=== PATIENT | female | born 1955 | race American Indian/Alaskan Native ===

== ENCOUNTER 2018-01-06 10:22 | Inpatient (IN) | payer MEDICARE, OTHER ==
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
[2018-01-06] MEDS ORDERED: Aspirin 325 mg EC Tablets PO STA (11:25)
--- NOTE | 2018-01-06 11:57 | RAD ---
HISTORY: chest pain COMPARISON: Chest radiograph dated 01/07/2016. TECHNIQUE: Chest PA and lateral FINDINGS: LUNGS: No active pulmonary disease. PLEURA: No significant pleural effusion identified. No pneumothorax apparent. CARDIOVASCULAR: Atherosclerotic aortic calcifications. Cardiomediastinal silhouette stably enlarged. OSSEOUS STRUCTURES: Unchanged. VISUALIZED UPPER ABDOMEN: Normal. OTHER FINDINGS: None. IMPRESSION: No active disease.
[2018-01-06 12:04] LABS: BASO % 0.3 % (0.0-2.0); EOS % 0.5 % (0.0-4.0); HEMOGLOBIN 12.8 g/dL (11.0-16.0); LYMPH # 1.5 K/uL (1.0-4.3); LYMPH % 24.6 % (20.0-40.0); MEAN CELL VOLUME 87.1 fL (81.0-99.0); MEAN CORPUSCULAR HEMOGLOBIN 28.6 pg (27.0-31.0); MEAN CORPUSCULAR HGB CONC 32.9 g/dL (33.0-37.0); MEAN PLATELET VOLUME 8.8 fL (7.2-11.7); MONO # 0.5 K/uL (0.0-0.8); MONO % 7.6 % (0.0-10.0); NEUT # 4.2 K/uL (1.8-7.0); RBC 4.48 Mil/uL (3.80-5.20); RED CELL DISTRIBUTION WIDTH 15.9 % (11.5-14.5); WHITE BLOOD COUNT 6.2 K/uL (4.8-10.8)
[2018-01-06 12:12] LABS: INR 1.1; PROTHROMBIN TIME 11.9 SECONDS (9.7-12.2)
[2018-01-06 12:47] LABS: ALB/GLOB RATIO 1.1 (1.0-2.1); ALBUMIN 4.2 g/dL (3.5-5.0); GFR AFRICAN-AMERICAN > 60; GFR NON-AFRICAN AMERICAN > 60; LIPASE 24 U/L (23-300)
[2018-01-06 12:49] LABS: ALT/SGPT 18 U/L (9-52); AST/SGOT 34 U/L (14-36); BLOOD UREA NITROGEN 6 mg/dL (7-17)
[2018-01-06 12:50] LABS: BENZODIAZEPINES, UR NEGATIVE (NEGATIVE); OPIATES, UR NEGATIVE (NEGATIVE); PHENCYCLIDINE, UR NEGATIVE (NEGATIVE)
[2018-01-06 12:51] LABS: BARBITURATES, UR NEGATIVE (NEGATIVE)
--- NOTE | 2018-01-06 18:13 | CP.PCM.CON ---
History of Present Illness - History of Present Illness History of Present Illness: 62 yo femqale with hx schizophrenia and HIV is admitted with chest pain cough and congestion possible exac COPD vs early pneumonia will check T cells and viral load await cardio eval may need stress test / cardiac cath Review of Systems - Review of Systems All systems: reviewed and no additional remarkable complaints except - Constitutional Constitutional: As Per HPI - EENT Eyes: absent: As Per HPI, Blind Spots, Blurred Vision, Change in Vision, Decreased Night Vision, Diplopia, Discharge, Dry Eye, Exophthalmos, Floaters, Irritation, Itchy Eyes, Loss of Peripheral Vision, Pain, Photophobia, Requires Corrective Lenses, Sees Flashes, Spots in Vision, Tunnel Vision, Other Visual Disturbances, Loss of Vision, Other Ears: absent: As Per HPI, Decreased Hearing, Ear Discharge, Ear Pain, Tinnitus, Abnormal Hearing, Disequilibrium, Dizziness, Other Nose/Mouth/Throat: absent: As Per HPI, Epistaxis, Nasal Congestion, Nasal Discharge, Nasal Obstruction, Nasal Trauma, Nose Pain, Post Nasal Drip, Sinus Pain, Sinus Pressure, Bleeding Gums, Change in Voice, Dental Pain, Dry Mouth, Dysphagia, Halitosis, Hoarsness, Lip Swelling, Mouth Lesions, Mouth Pain, Odynophagia, Sore Throat, Throat Swelling, Tongue Swelling, Facial Pain, Neck Pain, Neck Mass, Other - Breasts Breasts: absent: As Per HPI, Change in Shape, Mass, Pain, Nipple Discharge, Nipple Inversion, Skin Changes, Swelling, Other - Cardiovascular Cardiovascular: As Per HPI - Respiratory Respiratory: As Per HPI, Cough, Dyspnea. absent: Hemoptysis - Gastrointestinal Gastrointestinal: absent: As Per HPI, Abdominal Pain, Belching, Bloating, Change in Bowel Habits, Change in Stool Character, Coffee Ground Emesis, Constipation, Cramping, Diarrhea, Dyspepsia, Dysphagia, Early Satiety, Excessive Flatus, Fecal Incontinence, Heartburn, Hematemesis, Hematochezia, Loose Stools, Melena, Nausea, Odynophagia, Temesmus, Vomiting, Other - Genitourinary Genitourinary: absent: As Per HPI, Change in Urinary Stream, Difficulty Urinating, Dysuria, Flank Pain, Hematuria, Pyuria, Nocturia, Urinary Incontinence, Urinary Frequency, Urinary Hesitance, Urinary Urgency, Voiding Freq/Small Amts, Freq UTI, Hx Renal/Bladder Calculi, Hx /Renal Surgery, Bladder Distension, Other - Reproductive: Female Reproductive:Female: absent: As Per HPI, Amenorrhea, Amenorrhea/ Control, Currently Menstual, Cycle <21 Days, Cycle >35 Days, Cycle Variable, Menses 1-7 Days, Menses >/= 8 Days, Menses Variable, Cycle > 4 Weeks Between, No Menses for 6 Months, Heavy Menses, Light Menses, Normal Menses, Spotting Between Cycles , S/P Hysterectomy, Menopausal, Post Menopausal, Premenarche, Abnormal Vaginal Bleeding, Dysmenorrhea, Dyspareunia, Genital Lesions, Genital Pruritis, Pelvic Pain, Prolapse Symptoms, Sexual Dysfunction, Vaginal Discharge, Vaginal Dryness , Vaginal Odor, Vaginal Pruritis, Other - Menstruation Menstruation: absent: As Per HPI, Amenorrhea, Amenorrhea/ Control, Currently Menstual, Cycle <21 Days, Cycle >35 Days, Cycle Variable, Menses 1-7 Days, Menses >/= 8 Days, Menses Variable, Cycle > 4 Weeks Between, No Menses for 6 Months, Heavy Menses, Light Menses, Normal Menses, Spotting Between Cycles , S/P Hysterectomy, Menopausal, Post Menopausal, Premenarche, Abnormal Vaginal Bleeding, Dysmenorrhea, Other - Musculoskeletal Musculoskeletal: absent: As Per HPI, Abnormal Gait, Arthralgias, Atrophy, Back Pain, Deformity, Joint Swelling, Limited Range of Motion, Loss of Height, Muscle Cramps, Muscle Weakness, Myalgias, Neck Pain, Numbness, Radiating Pain into Limb, Stiffness, Tingling, Other - Integumentary Integumentary: absent: As Per HPI, Acne, Alopecia, Bleeding Lesions, Change in Hair, Change in Nails, Change in Pigmentation, Changing Lesions, Dry Skin, Erythema, Furuncle, Hirsutism, Lesions, New Lesions, Non-Healing Lesions, Photosensitivity, Pruritus, Rash, Skin Pain, Skin Ulcer, Sores, Striae, Swelling , Unusual Bruising, Wounds, Jaundice, Other - Neurological Neurological: absent: As Per HPI, Abnormal Gait, Abnormal Hearing, Abnormal Movements, Abnormal Speech, Behavioral Changes, Burning Sensations, Confusion, Convulsions, Disequilibrium, Dizziness, Numbness, Focal Weakness, Frequent Falls , Headaches, Lack of Coordination, Loss of Vision, Memory Loss, Paresthesias, Radicular Pain, Restless Legs, Sensory Deficit, Syncope, Tingling, Tremor, Vertigo, Weakness, Other Visual Disturbances, Other - Psychiatric Psychiatric: As Per HPI - Endocrine Endocrine: absent: As Per HPI, Change in Body Appearance, Change in Libido, Cold Intolorance, Deepening of Voice, Excessive Sweating, Fatigue, Flushing, Heat Intolorance, Increase in Ring/Shoe/Hat Size, Palpitations, Polydipsia, Polyphagia, Polyuria, Other - Hematologic/Lymphatic Hematologic: absent: As Per HPI, Easy Bleeding, Easy Bruising, Lymphadenopathy, Other Past Patient History - Infectious Disease Hx of Infectious Diseases: None - Past Medical History & Family History Past Medical History?: Yes - Past Social History Smoking Status: Former Smoker - CARDIAC Hx Hypertension: Yes - PULMONARY Hx Respiratory Disorders: No - NEUROLOGICAL Hx Neurological Disorder: No - HEENT Other/Comment: uses bifocal eyeglasses - RENAL Hx Chronic Kidney Disease: No - ENDOCRINE/METABOLIC Hx Endocrine Disorders: No - HEMATOLOGICAL/ONCOLOGICAL Hx Human Immunodeficiency Virus (HIV): Yes - INTEGUMENTARY Hx Dermatological Problems: No - MUSCULOSKELETAL/RHEUMATOLOGICAL Hx Musculoskeletal Disorders: Yes Hx Falls: Yes - GASTROINTESTINAL Hx Gastrointestinal Disorders: No - GENITOURINARY/GYNECOLOGICAL Hx Genitourinary Disorders: No - PSYCHIATRIC Hx Anxiety: Yes Hx Depression: Yes Hx Substance Use: No - SURGICAL HISTORY Hx Surgeries: No - ANESTHESIA Hx Anesthesia: No Hx Anesthesia Reactions: No Hx Malignant Hyperthermia: No Meds Allergies/Adverse Reactions: Allergies Allergy/AdvReac Type Severity Reaction Status Date / Time Penicillins Allergy Verified 01/06/18 10:33 - Medications Medications: Current Medications Amlodipine Besylate (Norvasc) 5 mg PO DAILY [facility] Heparin Sodium (Porcine) (Heparin) 5,000 units SC Q8 [facility] Lorazepam (Ativan) 1 mg PO Q6 PRN PRN Reason: Anxiety Physical Exam - Constitutional Appears: Well - Head Exam Head Exam: ATRAUMATIC, NORMAL INSPECTION, NORMOCEPHALIC - Eye Exam Eye Exam: EOMI, Normal appearance, PERRL Pupil Exam: NORMAL ACCOMODATION, PERRL - ENT Exam ENT Exam: Mucous Membranes Moist, Normal Exam - Neck Exam Neck exam: Positive for: Normal Inspection - Respiratory Exam Respiratory Exam: Clear to Auscultation Bilateral, NORMAL BREATHING PATTERN - Cardiovascular Exam Cardiovascular Exam: REGULAR RHYTHM - GI/Abdominal Exam GI & Abdominal Exam: Normal Bowel Sounds, Soft. absent: Tenderness - Rectal Exam Rectal Exam: NORMAL INSPECTION - Exam Exam: Circumcision, NORMAL INSPECTION - Extremities Exam Extremities exam: Positive for: normal inspection - Back Exam Back exam: NORMAL INSPECTION - Neurological Exam Neurological exam: Alert, CN II-XII Intact, Normal Gait, Oriented x3, Reflexes Normal - Psychiatric Exam Psychiatric exam: Anxious, Depressed, Flat Affect - Skin Skin Exam: Dry, Intact, Normal Color, Warm Results - Vital Signs Recent Vital Signs: Last Vital Signs Temp 98.6 F 01/06/18 15:30 Pulse 76 01/06/18 15:30 Resp 20 01/06/18 15:30 BP 143/83 01/06/18 15:30 Pulse Ox 93 L 01/06/18 15:30 - Labs Result Diagrams: 01/06/18 12:05 01/06/18 12:29 Labs: Laboratory Results - last 24 hr 01/06/18 01/06/18 01/06/18 12:05 12:12 12:29 WBC 6.2 RBC 4.48 Hgb 12.8 Hct 39.0 MCV 87.1 MCH 28.6 MCHC 32.9 L RDW 15.9 H Plt Count 254 MPV 8.8 Neut % (Auto) 67.0 Lymph % (Auto) 24.6 Shackelford % (Auto) 7.6 Eos % (Auto) 0.5 Baso % (Auto) 0.3 Neut # (Auto) 4.2 Lymph # (Auto) 1.5 [place]ack[place]ord # (Auto) 0.5 Eos # (Auto) 0.0 Baso # (Auto) 0.0 PT 11.9 INR 1.1 APTT 41 H Sodium 143 Potassium 3.8 Chloride 102 Carbon Dioxide 27 Anion Gap 18 BUN 6 L Creatinine 0.9 Est GFR ( Amer) > 60 Est GFR (Non-Af Amer) > 60 Random Glucose 89 Calcium 9.0 Total Bilirubin 1.0 AST 34 ALT 18 Alkaline Phosphatase 76 Troponin I < 0.0120 Total Protein 8.2 Albumin 4.2 Globulin 4.0 H Albumin/Globulin Ratio 1.1 Lipase 24 Urine Opiates Screen Urine Methadone Screen Ur Barbiturates Screen Valproic Acid Ur Phencyclidine Scrn Ur Amphetamines Screen U Benzodiazepines Scrn U Oth Cocaine Metabols U Cannabinoids Screen 01/06/18 01/06/18 01/06/18 12:29 12:29 14:32 WBC RBC Hgb Hct MCV MCH MCHC RDW Plt Count MPV Neut % (Auto) Lymph % (Auto) [place]ack[place]ord % (Auto) Eos % (Auto) Baso % (Auto) Neut # (Auto) Lymph # (Auto) [place]ack[place]ord # (Auto) Eos # (Auto) Baso # (Auto) PT INR APTT Sodium Potassium Chloride Carbon Dioxide Anion Gap BUN Creatinine Est GFR ( Amer) Est GFR (Non-Af Amer) Random Glucose Calcium Total Bilirubin AST ALT Alkaline Phosphatase Troponin I < 0.0120 Total Protein Albumin Globulin Albumin/Globulin Ratio Lipase Urine Opiates Screen Negative Urine Methadone Screen Negative Ur Barbiturates Screen Negative Valproic Acid < 10.0 L Ur Phencyclidine Scrn Negative Ur Amphetamines Screen Negative U Benzodiazepines Scrn Negative U Oth Cocaine Metabols Negative U Cannabinoids Screen Negative Assessment & Plan (1) Chest pain Status: Acute (2) FRANKS (dyspnea on exertion) Status: Acute (3) HTN (hypertension) Status: Acute (4) Palpitations Status: Acute (5) SOB (shortness of breath) Status: Acute - Assessment and Plan (Free Text) Assessment: r/o pulm htn hx HIV schizophrenia chest pain Dr Tarsha stevens
[2018-01-06] MEDS ORDERED: Azithromycin 500mg/250ML NS 500 MG/250 ML BAG IVPB SCH (18:15)
[2018-01-06 20:16] LABS: CK-MB < 0.22 ng/mL (0.0-3.38)
[2018-01-06] MEDS: Azithromycin 500mg/250ML NS 500 MG/250 ML BAG IVPB SCH (21:14)
[2018-01-07 05:17] LABS: CK-MB < 0.22 ng/mL (0.0-3.38)
[2018-01-07] MEDS ORDERED: Atazanavir 300 mg Cap PO SCH (10:00)
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
[2018-01-07] MEDS: Azithromycin 500mg/250ML NS 500 MG/250 ML BAG IVPB SCH (18:08)
--- NOTE | 2018-01-07 18:48 | CP.PCM.PN ---
Subjective - Date & Time of Evaluation Date of Evaluation: 01/07/18 Time of Evaluation: 09:00 - Subjective Subjective: seen by psych T cells pending Troponins so far negative rx to cont Objective - Vital Signs/Intake and Output Vital Signs (last 24 hours): Temp Pulse Resp BP Pulse Ox 98.2 F 75 18 120/76 97 01/07/18 15:17 01/07/18 16:00 01/07/18 15:17 01/07/18 15:17 01/07/18 15:17 Intake and Output: 01/07/18 01/07/18 06:59 18:59 Intake Total 240 Balance 240 - Medications Medications: Current Medications Amlodipine Besylate (Norvasc) 5 mg PO DAILY [facility] Last Admin: 01/07/18 10:29 Dose: 5 mg Atazanavir (Reyataz) 400 mg PO DAILY [facility] PRN Reason: Protocol Clonazepam (Klonopin) 0.5 mg PO BID [facility] Last Admin: 01/07/18 18:07 Dose: 0.5 mg Heparin Sodium (Porcine) (Heparin) 5,000 units SC Q8 [facility] Last Admin: 01/07/18 13:15 Dose: Not Given Azithromycin (Zithromax 500mg In Ns Addvantage) 500 mg in 250 mls @ 167 mls/hr IVPB Q24H [facility] PRN Reason: Protocol Last Admin: 01/07/18 18:08 Dose: 167 mls/hr Lamivudine/Zidovudine (Combivir 150 Mg-300 Mg) 1 tab PO BID [facility] PRN Reason: Protocol Last Admin: 01/07/18 18:07 Dose: 1 tab Lorazepam (Ativan) 1 mg PO Q6 PRN PRN Reason: Anxiety Pneumococcal Polyvalent Vaccine (Pneumovax 23 Vaccine) 0.5 ml IM .ONCE ONE Stop: 01/09/18 12:01 - Labs Labs: 01/06/18 12:05 01/06/18 12:29 PT 11.9 SECONDS (9.7-12.2) 01/06/18 12:12 INR 1.1 01/06/18 12:12 APTT 41 SECONDS (21-34) H 01/06/18 12:12 - Constitutional Appears: Non-toxic, Chronically Ill - Head Exam Head Exam: NORMOCEPHALIC - Eye Exam Eye Exam: PERRL - ENT Exam ENT Exam: Mucous Membranes Dry - Neck Exam Neck Exam: absent: Lymphadenopathy - Respiratory Exam Respiratory Exam: Decreased Breath Sounds - Cardiovascular Exam Cardiovascular Exam: REGULAR RHYTHM - GI/Abdominal Exam GI & Abdominal Exam: Distended - Rectal Exam Rectal Exam: Deferred - Exam Exam: NORMAL INSPECTION - Extremities Exam Extremities Exam: absent: Pedal Edema - Back Exam Back Exam: absent: CVA tenderness (L), CVA tenderness (R) - Neurological Exam Neurological Exam: Alert, Awake, Oriented x3 - Psychiatric Exam Psychiatric exam: Anxious - Skin Skin Exam: Dry Assessment and Plan (1) Chest pain Status: Acute (2) FRANKS (dyspnea on exertion) Status: Acute (3) HTN (hypertension) Status: Acute (4) Palpitations Status: Acute (5) SOB (shortness of breath) Status: Acute - Assessment and Plan (Free Text) Assessment: will renew meds await cardio eval
--- NOTE | 2018-01-07 18:57 | CP.PCM.PN ---
Subjective - Date & Time of Evaluation Date of Evaluation: 01/07/18 Time of Evaluation: 18:54 - Subjective Subjective: S: c/o chest iscomfort, on and off. N SOB. No fever Objective - Vital Signs/Intake and Output Vital Signs (last 24 hours): Temp Pulse Resp BP Pulse Ox 98.2 F 75 18 120/76 97 01/07/18 15:17 01/07/18 16:00 01/07/18 15:17 01/07/18 15:17 01/07/18 15:17 Intake and Output: 01/07/18 01/07/18 06:59 18:59 Intake Total 240 Balance 240 - Medications Medications: Current Medications Amlodipine Besylate (Norvasc) 5 mg PO DAILY [facility] Last Admin: 01/07/18 10:29 Dose: 5 mg Atazanavir (Reyataz) 400 mg PO DAILY [facility] PRN Reason: Protocol Clonazepam (Klonopin) 0.5 mg PO BID [facility] Last Admin: 01/07/18 18:07 Dose: 0.5 mg Heparin Sodium (Porcine) (Heparin) 5,000 units SC Q8 [facility] Last Admin: 01/07/18 13:15 Dose: Not Given Azithromycin (Zithromax 500mg In Ns Addvantage) 500 mg in 250 mls @ 167 mls/hr IVPB Q24H [facility] PRN Reason: Protocol Last Admin: 01/07/18 18:08 Dose: 167 mls/hr Lamivudine/Zidovudine (Combivir 150 Mg-300 Mg) 1 tab PO BID [facility] PRN Reason: Protocol Last Admin: 01/07/18 18:07 Dose: 1 tab Lorazepam (Ativan) 1 mg PO Q6 PRN PRN Reason: Anxiety Pneumococcal Polyvalent Vaccine (Pneumovax 23 Vaccine) 0.5 ml IM .ONCE ONE Stop: 01/09/18 12:01 - Labs Labs: 01/06/18 12:05 01/06/18 12:29 PT 11.9 SECONDS (9.7-12.2) 01/06/18 12:12 INR 1.1 01/06/18 12:12 APTT 41 SECONDS (21-34) H 01/06/18 12:12 - Constitutional Appears: No Acute Distress - Head Exam Head Exam: NORMAL INSPECTION - Eye Exam Eye Exam: Normal appearance - ENT Exam ENT Exam: Normal Exam - Neck Exam Neck Exam: Normal Inspection - Respiratory Exam Respiratory Exam: NORMAL BREATHING PATTERN - Cardiovascular Exam Cardiovascular Exam: REGULAR RHYTHM - GI/Abdominal Exam GI & Abdominal Exam: Soft - Extremities Exam Extremities Exam: Normal Inspection - Neurological Exam Neurological Exam: Awake Assessment and Plan (1) Chest pain Status: Acute (2) HTN (hypertension) Status: Chronic (3) HIV (human immunodeficiency virus infection) Status: Chronic (4) Schizophrenia Status: Chronic - Assessment and Plan (Free Text) Assessment: A/P: Continue medication. Cardiology consult Dr. Willingham
--- NOTE | 2018-01-07 20:01 | CARD ---
APPROVED REPORT EKG Measurement Heart [id number] <Conclusion> Sinus rhythm Possible Left atrial enlargement Nonspecific ST abnormality Abnormal ECG
--- NOTE | 2018-01-08 08:12 | CP.PCM.PN ---
Subjective - Date & Time of Evaluation Date of Evaluation: 01/08/18 Time of Evaluation: 07:54 - Subjective Subjective: Patient do now want to talk. No reliable ROS. Refuse Zithromax and Heparin. Objective - Vital Signs/Intake and Output Vital Signs (last 24 hours): Temp Pulse Resp BP Pulse Ox 98.0 F 72 18 147/91 H 95 01/07/18 23:00 01/08/18 04:05 01/07/18 23:00 01/07/18 23:00 01/07/18 23:00 Intake and Output: 01/08/18 01/08/18 06:59 18:59 Intake Total 120 Balance 120 - Medications Medications: Current Medications Amlodipine Besylate (Norvasc) 5 mg PO DAILY [facility] Last Admin: 01/07/18 10:29 Dose: 5 mg Atazanavir (Reyataz) 400 mg PO DAILY [facility] PRN Reason: Protocol Clonazepam (Klonopin) 0.5 mg PO BID [facility] Last Admin: 01/07/18 18:07 Dose: Not Given Heparin Sodium (Porcine) (Heparin) 5,000 units SC Q8 [facility] Last Admin: 01/08/18 06:25 Dose: Not Given Azithromycin (Zithromax 500mg In Ns Addvantage) 500 mg in 250 mls @ 167 mls/hr IVPB Q24H [facility] PRN Reason: Protocol Last Admin: 01/07/18 18:08 Dose: 167 mls/hr Lamivudine/Zidovudine (Combivir 150 Mg-300 Mg) 1 tab PO BID [facility] PRN Reason: Protocol Last Admin: 01/07/18 18:07 Dose: 1 tab Lorazepam (Ativan) 1 mg PO Q6 PRN PRN Reason: Anxiety Pneumococcal Polyvalent Vaccine (Pneumovax 23 Vaccine) 0.5 ml IM .ONCE ONE Stop: 01/09/18 12:01 - Labs Labs: 01/06/18 12:05 01/06/18 12:29 PT 11.9 SECONDS (9.7-12.2) 01/06/18 12:12 INR 1.1 01/06/18 12:12 APTT 41 SECONDS (21-34) H 01/06/18 12:12 - Constitutional Appears: No Acute Distress - Eye Exam Eye Exam: Normal appearance - ENT Exam ENT Exam: Mucous Membranes Moist - Respiratory Exam Respiratory Exam: Clear to Ausculation Bilateral. absent: Rales, Rhonchi, Wheezes - Cardiovascular Exam Cardiovascular Exam: REGULAR RHYTHM, +S1, +S2. absent: Gallop - GI/Abdominal Exam GI & Abdominal Exam: Soft. absent: Tenderness - Extremities Exam Extremities Exam: Full ROM, Normal Capillary Refill. absent: Calf Tenderness, Joint Swelling, Pedal Edema Assessment and Plan - Assessment and Plan (Free Text) Assessment: Chest pain; Schizophrenia HIV infection; HTN For stress test Cont supportive care
[2018-01-08 11:41] LABS: % CD4 (T HELPER CELL) 29 Percent (30-61); % CD8 (SUPPRESSOR T CELL) 60 Percent (12-42); ABSOLUTE CD4 CELLS 565 Cells/mcL (490-1740); ABSOLUTE CD8 CELLS 1172 Cells/mcL (180-1170); ABSOLUTE LYMPHOCYTES 1957 Cells/mcL (850-3900); HELPER/SUPPRESSOR RATIO 0.48 Ratio (0.86-5.00)
[2018-01-08] MEDS: Divalproex 500 mg DR Tab PO SCH ×4 (12:58→18:10)
[2018-01-08 13:59] LABS: SQUAMOUS EPITHIAL 4 /hpf (0-5); URINE BACTERIA RARE (<OCC); URINE BILIRUBIN NEGATIVE (NEGATIVE); URINE BLOOD 1+ (NEGATIVE); URINE CLARITY Clear (Clear); URINE COLOR Yellow (YELLOW); URINE GLUCOSE (UA) NORMAL (Normal); URINE LEUKOCYTE ESTERASE NEG Leu/uL (Negative); URINE PROTEIN NEGATIVE (NEGATIVE); URINE UROBILINOGEN NORMAL mg/dL (0.2-1.0)
[2018-01-08] MEDS: SEROQUEL 300 MG PO SCH ×2 (14:12→22:48)
[2018-01-08] MEDS ORDERED: Divalproex 500 mg ER Tab PO SCH (18:00)
[2018-01-08] MEDS: Azithromycin 500mg/250ML NS 500 MG/250 ML BAG IVPB SCH (18:47)
--- NOTE | 2018-01-08 19:12 | CP.PCM.PN ---
Subjective - Date & Time of Evaluation Date of Evaluation: 01/08/18 Time of Evaluation: 07:00 - Subjective Subjective: remains anxious denies cough + chest pain on and off Objective - Vital Signs/Intake and Output Vital Signs (last 24 hours): Temp Pulse Resp BP Pulse Ox 97.9 F 84 20 127/85 97 01/08/18 16:40 01/08/18 16:40 01/08/18 16:40 01/08/18 16:40 01/08/18 16:40 - Medications Medications: Current Medications Amlodipine Besylate (Norvasc) 5 mg PO DAILY [facility] Last Admin: 01/08/18 10:30 Dose: Not Given Atazanavir (Reyataz) 400 mg PO DAILY [facility] PRN Reason: Protocol Last Admin: 01/08/18 10:30 Dose: Not Given Clonazepam (Klonopin) 0.5 mg PO BID [facility] Last Admin: 01/08/18 18:09 Dose: Not Given Divalproex Sodium (Depakote Dr) 500 mg PO BID [facility] Last Admin: 01/08/18 18:10 Dose: Not Given Heparin Sodium (Porcine) (Heparin) 5,000 units SC Q8 [facility] Last Admin: 01/08/18 13:10 Dose: Not Given Home Med (Patient's Own Medication) 1 tab PO BID@1300,2200 [facility] Last Admin: 01/08/18 14:12 Dose: Not Given Azithromycin (Zithromax 500mg In Ns Addvantage) 500 mg in 250 mls @ 167 mls/hr IVPB Q24H [facility] PRN Reason: Protocol Last Admin: 01/08/18 18:47 Dose: Not Given Lamivudine/Zidovudine (Combivir 150 Mg-300 Mg) 1 tab PO BID [facility] PRN Reason: Protocol Last Admin: 01/08/18 18:10 Dose: 1 tab Lorazepam (Ativan) 1 mg PO Q6 PRN PRN Reason: Anxiety Pneumococcal Polyvalent Vaccine (Pneumovax 23 Vaccine) 0.5 ml IM .ONCE ONE Stop: 01/09/18 12:01 - Labs Labs: 01/06/18 12:05 01/06/18 12:29 PT 11.9 SECONDS (9.7-12.2) 01/06/18 12:12 INR 1.1 01/06/18 12:12 APTT 41 SECONDS (21-34) H 01/06/18 12:12 - Constitutional Appears: Non-toxic, Chronically Ill - Head Exam Head Exam: NORMOCEPHALIC - Eye Exam Eye Exam: PERRL - ENT Exam ENT Exam: Mucous Membranes Dry - Neck Exam Neck Exam: absent: Lymphadenopathy - Respiratory Exam Respiratory Exam: Decreased Breath Sounds - Cardiovascular Exam Cardiovascular Exam: REGULAR RHYTHM - GI/Abdominal Exam GI & Abdominal Exam: Distended, Soft. absent: Tenderness - Rectal Exam Rectal Exam: Deferred - Exam Exam: NORMAL INSPECTION - Extremities Exam Extremities Exam: absent: Pedal Edema - Back Exam Back Exam: absent: CVA tenderness (L), CVA tenderness (R) - Neurological Exam Neurological Exam: Alert, Awake, Oriented x3 - Psychiatric Exam Psychiatric exam: Normal Mood - Skin Skin Exam: Dry Assessment and Plan (1) Chest pain Status: Acute (2) FRANKS (dyspnea on exertion) Status: Acute (3) HTN (hypertension) Status: Chronic (4) Palpitations Status: Acute (5) SOB (shortness of breath) Status: Acute
[2018-01-09] MEDS: Divalproex 500 mg DR Tab PO SCH ×2 (09:55→18:10)
[2018-01-09] MEDS ORDERED: Pneumococcal 23-Valent Vaccine IM ONE (12:00)
[2018-01-09] MEDS: SEROQUEL 300 MG PO SCH ×2 (13:42→21:30)
--- NOTE | 2018-01-09 16:00 | CP.PCM.PN ---
Subjective - Date & Time of Evaluation Date of Evaluation: 01/09/18 Time of Evaluation: 15:57 - Subjective Subjective: S: Feels kurtis. Not sign by Cardiology Objective - Vital Signs/Intake and Output Vital Signs (last 24 hours): Temp Pulse Resp BP Pulse Ox 97.8 F 68 18 146/95 H 100 01/09/18 15:27 01/09/18 15:27 01/09/18 15:27 01/09/18 15:27 01/09/18 15:27 - Medications Medications: Current Medications Amlodipine Besylate (Norvasc) 5 mg PO DAILY [facility] Last Admin: 01/09/18 09:56 Dose: Not Given Atazanavir (Reyataz) 400 mg PO DAILY [facility] PRN Reason: Protocol Last Admin: 01/09/18 09:56 Dose: 400 mg Clonazepam (Klonopin) 0.5 mg PO BID [facility] Last Admin: 01/09/18 09:56 Dose: Not Given Divalproex Sodium (Depakote Dr) 500 mg PO BID [facility] Last Admin: 01/09/18 09:55 Dose: Not Given Heparin Sodium (Porcine) (Heparin) 5,000 units SC Q8 [facility] Last Admin: 01/09/18 13:42 Dose: Not Given Home Med (Patient's Own Medication) 1 tab PO BID@1300,2200 [facility] Last Admin: 01/09/18 13:42 Dose: Not Given Azithromycin (Zithromax 500mg In Ns Addvantage) 500 mg in 250 mls @ 167 mls/hr IVPB Q24H [facility] PRN Reason: Protocol Last Admin: 01/08/18 18:47 Dose: Not Given Lamivudine/Zidovudine (Combivir 150 Mg-300 Mg) 1 tab PO BID [facility] PRN Reason: Protocol Last Admin: 01/09/18 09:55 Dose: 1 tab Lorazepam (Ativan) 1 mg PO Q6 PRN PRN Reason: Anxiety - Labs Labs: 01/06/18 12:05 01/06/18 12:29 PT 11.9 SECONDS (9.7-12.2) 01/06/18 12:12 INR 1.1 01/06/18 12:12 APTT 41 SECONDS (21-34) H 01/06/18 12:12 - Constitutional Appears: Non-toxic - Head Exam Head Exam: NORMAL INSPECTION - Eye Exam Eye Exam: Normal appearance - ENT Exam ENT Exam: Normal Exam - Neck Exam Neck Exam: Normal Inspection - Respiratory Exam Respiratory Exam: NORMAL BREATHING PATTERN - Cardiovascular Exam Cardiovascular Exam: REGULAR RHYTHM - Rectal Exam Rectal Exam: Deferred - Exam External exam: NORMAL EXTERNAL EXAM Assessment and Plan (1) Chest pain Status: Acute (2) HTN (hypertension) Status: Chronic (3) HIV (human immunodeficiency virus infection) Status: Chronic (4) Schizophrenia Status: Chronic - Assessment and Plan (Free Text) Assessment: A/P: Continue medications. Not seen by Cardiology. Cardiolody consult Dr. Wu
[2018-01-09] MEDS: Azithromycin 500mg/250ML NS 500 MG/250 ML BAG IVPB SCH (18:12)
[2018-01-10 00:27] VITALS: RESP 20
--- NOTE | 2018-01-10 09:22 | CP.PCM.CON ---
History of Present Illness - History of Present Illness History of Present Illness: Patient seen and evaluated C/O Chest pain Constant for days and reproducible Scattered thought pattern Denies hx of AK, Prior heart disease Review Of Systems Except As Marked, All Systems Reviewed And Found Negative. Constitutional: Positive for: Weight loss (since 06/2017) Cardiovascular: Positive for: Chest Pain. Negative for: Light Headedness Respiratory: Negative for: Shortness of Breath Gastrointestinal: Negative for: Nausea, Vomiting Neurological: Negative for: Dizziness Physical Exam - Physical Exam Appears: Non-toxic, No Acute Distress Skin: Normal Color, Warm, Dry Head: Atraumatic, Normacephalic Eye(s): bilateral: Normal Inspection Oral Mucosa: Moist Neck: Normal ROM, Supple Chest: Symmetrical Cardiovascular: Rhythm Regular Respiratory: Normal Breath Sounds, No Rales, No Rhonchi, No Wheezing Gastrointestinal/Abdominal: Normal Exam, Bowel Sounds, Soft, No Tenderness Extremity: Normal ROM, No Pedal Edema Neurological/Psych: Oriented x3, Normal Speech, Normal Cognition, Normal Motor, Normal Sensation, Other (Calm, cooperative, with scattered thoughts. No acute hallucinations or delusions.) Past Patient History - Infectious Disease Hx of Infectious Diseases: None - Past Medical History & Family History Past Medical History?: Yes - Past Social History Smoking Status: Former Smoker - CARDIAC Hx Hypertension: Yes - PULMONARY Hx Respiratory Disorders: No - NEUROLOGICAL Hx Neurological Disorder: No - HEENT Other/Comment: uses bifocal eyeglasses - RENAL Hx Chronic Kidney Disease: No - ENDOCRINE/METABOLIC Hx Endocrine Disorders: No - HEMATOLOGICAL/ONCOLOGICAL Hx Human Immunodeficiency Virus (HIV): Yes - INTEGUMENTARY Hx Dermatological Problems: No - MUSCULOSKELETAL/RHEUMATOLOGICAL Hx Musculoskeletal Disorders: Yes Hx Falls: Yes - GASTROINTESTINAL Hx Gastrointestinal Disorders: No - GENITOURINARY/GYNECOLOGICAL Hx Genitourinary Disorders: No - PSYCHIATRIC Hx Anxiety: Yes Hx Depression: Yes Hx Substance Use: No - SURGICAL HISTORY Hx Surgeries: No - ANESTHESIA Hx Anesthesia: No Hx Anesthesia Reactions: No Hx Malignant Hyperthermia: No Meds Allergies/Adverse Reactions: Allergies Allergy/AdvReac Type Severity Reaction Status Date / Time Penicillins Allergy Verified 01/06/18 10:33 - Medications Medications: Current Medications Amlodipine Besylate (Norvasc) 5 mg PO DAILY [facility] Last Admin: 01/09/18 09:56 Dose: Not Given Atazanavir (Reyataz) 400 mg PO DAILY [facility] PRN Reason: Protocol Last Admin: 01/09/18 09:56 Dose: 400 mg Clonazepam (Klonopin) 0.5 mg PO BID [facility] Last Admin: 01/09/18 18:10 Dose: Not Given Divalproex Sodium (Depakote Dr) 500 mg PO BID [facility] Last Admin: 01/09/18 18:10 Dose: Not Given Home Med (Patient's Own Medication) 1 tab PO BID@1300,2200 [facility] Last Admin: 01/09/18 21:30 Dose: Not Given Azithromycin (Zithromax 500mg In Ns Addvantage) 500 mg in 250 mls @ 167 mls/hr IVPB Q24H [facility] PRN Reason: Protocol Last Admin: 01/09/18 18:12 Dose: Not Given Lamivudine/Zidovudine (Combivir 150 Mg-300 Mg) 1 tab PO BID [facility] PRN Reason: Protocol Last Admin: 01/09/18 18:10 Dose: Not Given Lorazepam (Ativan) 1 mg PO Q6 PRN PRN Reason: Anxiety Results - Vital Signs Recent Vital Signs: Last Vital Signs Temp 98 F 01/10/18 08:00 Pulse 79 01/10/18 08:00 Resp 20 01/10/18 08:00 BP 122/86 01/10/18 08:00 Pulse Ox 97 01/10/18 08:00 - Labs Result Diagrams: 01/06/18 12:05 01/06/18 12:29 Assessment & Plan - Assessment and Plan (Free Text) Assessment: 1. Chest Pain: Constant and reproducible Non exertional Trop x 3 negative EKG: Normal Prior ECHO: Normal Very highly unlikley chest pain from Cardiac ischemia Recommend routine medical therapy for likley muscular pain 2. Hx of Psych disorder I will follow Thank you for the consult
[2018-01-10] MEDS: Divalproex 500 mg DR Tab PO SCH ×2 (09:59→21:32)
[2018-01-10] MEDS: SEROQUEL 300 MG PO SCH ×2 (13:49→21:33)
--- NOTE | 2018-01-10 16:19 | CP.PCM.PN ---
Subjective - Date & Time of Evaluation Date of Evaluation: 01/10/18 Time of Evaluation: 08:00 - Subjective Subjective: c/o pain cough + refuses zmax Objective - Vital Signs/Intake and Output Vital Signs (last 24 hours): Temp Pulse Resp BP Pulse Ox 98 F 79 20 122/86 97 01/10/18 08:00 01/10/18 12:46 01/10/18 08:00 01/10/18 08:00 01/10/18 08:00 - Medications Medications: Current Medications Amlodipine Besylate (Norvasc) 5 mg PO DAILY [facility] Last Admin: 01/10/18 09:59 Dose: Not Given Atazanavir (Reyataz) 400 mg PO DAILY [facility] PRN Reason: Protocol Last Admin: 01/10/18 09:59 Dose: 400 mg Clonazepam (Klonopin) 0.5 mg PO BID [facility] Last Admin: 01/10/18 09:59 Dose: Not Given Divalproex Sodium (Depakote Dr) 500 mg PO BID [facility] Last Admin: 01/10/18 09:59 Dose: Not Given Home Med (Patient's Own Medication) 1 tab PO BID@1300,2200 [facility] Last Admin: 01/10/18 13:49 Dose: Not Given Azithromycin (Zithromax 500mg In Ns Addvantage) 500 mg in 250 mls @ 167 mls/hr IVPB Q24H [facility] PRN Reason: Protocol Last Admin: 01/09/18 18:12 Dose: Not Given Lamivudine/Zidovudine (Combivir 150 Mg-300 Mg) 1 tab PO BID [facility] PRN Reason: Protocol Last Admin: 01/10/18 09:59 Dose: 1 tab Lorazepam (Ativan) 1 mg PO Q6 PRN PRN Reason: Anxiety - Labs Labs: 01/06/18 12:05 01/06/18 12:29 PT 11.9 SECONDS (9.7-12.2) 01/06/18 12:12 INR 1.1 01/06/18 12:12 APTT 41 SECONDS (21-34) H 01/06/18 12:12 Assessment and Plan (1) Chest pain Status: Acute (2) FRANKS (dyspnea on exertion) Status: Acute (3) HTN (hypertension) Status: Chronic (4) Palpitations Status: Acute (5) SOB (shortness of breath) Status: Acute
[2018-01-10] MEDS: Azithromycin 500mg/250ML NS 500 MG/250 ML BAG IVPB SCH (19:00)
[2018-01-10] MEDS ORDERED: SEROQUEL 300 MG PO SCH (22:00)
[2018-01-10] MEDS ORDERED: QUETIAPINE 300 MG PO SCH (22:00)
--- NOTE | 2018-01-10 22:04 | CP.PCM.PN ---
Subjective - Date & Time of Evaluation Date of Evaluation: 01/10/18 Time of Evaluation: 17:05 - Subjective Subjective: Patient still on and off chest pain Stable For stress test in am Objective - Vital Signs/Intake and Output Vital Signs (last 24 hours): Temp Pulse Resp BP Pulse Ox 97.5 F L 74 20 130/83 96 01/10/18 15:42 01/10/18 15:42 01/10/18 15:42 01/10/18 15:42 01/10/18 15:42 - Medications Medications: Current Medications Amlodipine Besylate (Norvasc) 5 mg PO DAILY [facility] Last Admin: 01/10/18 09:59 Dose: Not Given Atazanavir (Reyataz) 400 mg PO DAILY [facility] PRN Reason: Protocol Last Admin: 01/10/18 09:59 Dose: 400 mg Clonazepam (Klonopin) 0.5 mg PO BID [facility] Last Admin: 01/10/18 21:37 Dose: Not Given Divalproex Sodium (Depakote Dr) 500 mg PO Q12 [facility] Last Admin: 01/10/18 21:32 Dose: 500 mg Home Med (Quetiapine [Seroquel]) 300 mg PO Q12 [facility] Azithromycin (Zithromax 500mg In Ns Addvantage) 500 mg in 250 mls @ 167 mls/hr IVPB Q24H [facility] PRN Reason: Protocol Last Admin: 01/10/18 19:00 Dose: Not Given Lamivudine/Zidovudine (Combivir 150 Mg-300 Mg) 1 tab PO BID [facility] PRN Reason: Protocol Last Admin: 01/10/18 18:00 Dose: Not Given Lorazepam (Ativan) 1 mg PO Q6 PRN PRN Reason: Anxiety - Labs Labs: 01/06/18 12:05 01/06/18 12:29 PT 11.9 SECONDS (9.7-12.2) 01/06/18 12:12 INR 1.1 01/06/18 12:12 APTT 41 SECONDS (21-34) H 01/06/18 12:12
--- NOTE | 2018-01-11 07:13 | CP.PCM.CON ---
History of Present Illness - History of Present Illness History of Present Illness: CC: chest pain HPI: 62 yo femqale with hx schizophrenia and HIV is admitted with chest pain cough and congestion. Chest pain is not related to effort but elicited on pressure to chest. Patien is very belligerent and verbally abusive and uncooperative. Review of Systems - Cardiovascular Cardiovascular: Chest Pain - Respiratory Respiratory: Cough, Chest Congestion, Pain with Coughing Past Patient History - Infectious Disease Hx of Infectious Diseases: None - Past Medical History & Family History Past Medical History?: Yes - Past Social History Smoking Status: Former Smoker - CARDIAC Hx Cardiac Disorders: No Hx Hypertension: Yes - PULMONARY Hx Respiratory Disorders: No - NEUROLOGICAL Hx Neurological Disorder: No - HEENT Hx HEENT Problems: No Other/Comment: uses bifocal eyeglasses - RENAL Hx Chronic Kidney Disease: No - ENDOCRINE/METABOLIC Hx Endocrine Disorders: No - HEMATOLOGICAL/ONCOLOGICAL Hx Blood Disorders: No Hx Human Immunodeficiency Virus (HIV): Yes - INTEGUMENTARY Hx Dermatological Problems: No - MUSCULOSKELETAL/RHEUMATOLOGICAL Hx Musculoskeletal Disorders: Yes Hx Falls: Yes - GASTROINTESTINAL Hx Gastrointestinal Disorders: No - GENITOURINARY/GYNECOLOGICAL Hx Genitourinary Disorders: No - PSYCHIATRIC Hx Anxiety: Yes Hx Depression: Yes Hx Substance Use: No - SURGICAL HISTORY Hx Surgeries: No - ANESTHESIA Hx Anesthesia: No Hx Anesthesia Reactions: No Hx Malignant Hyperthermia: No Meds Allergies/Adverse Reactions: Allergies Allergy/AdvReac Type Severity Reaction Status Date / Time Penicillins Allergy Verified 01/06/18 10:33 - Medications Medications: Current Medications Amlodipine Besylate (Norvasc) 5 mg PO DAILY [facility] Last Admin: 01/10/18 09:59 Dose: Not Given Atazanavir (Reyataz) 400 mg PO DAILY [facility] PRN Reason: Protocol Last Admin: 01/10/18 09:59 Dose: 400 mg Clonazepam (Klonopin) 0.5 mg PO BID [facility] Last Admin: 01/10/18 21:37 Dose: Not Given Divalproex Sodium (Depakote Dr) 500 mg PO Q12 [facility] Last Admin: 01/10/18 21:32 Dose: 500 mg Home Med (Quetiapine [Seroquel]) 300 mg PO Q12 [facility] Azithromycin (Zithromax 500mg In Ns Addvantage) 500 mg in 250 mls @ 167 mls/hr IVPB Q24H [facility] PRN Reason: Protocol Last Admin: 01/10/18 19:00 Dose: Not Given Lamivudine/Zidovudine (Combivir 150 Mg-300 Mg) 1 tab PO BID [facility] PRN Reason: Protocol Last Admin: 01/10/18 18:00 Dose: Not Given Lorazepam (Ativan) 1 mg PO Q6 PRN PRN Reason: Anxiety Physical Exam - Constitutional Appears: Non-toxic - Head Exam Head Exam: NORMAL INSPECTION - Eye Exam Eye Exam: absent: Scleral icterus - ENT Exam ENT Exam: Mucous Membranes Moist - Neck Exam Neck exam: Positive for: Full Rom. Negative for: Lymphadenopathy - Respiratory Exam Respiratory Exam: Chest Wall Tenderness, Decreased Breath Sounds Additional comments: +Left chest wall tenderness - Cardiovascular Exam Cardiovascular Exam: REGULAR RHYTHM - GI/Abdominal Exam GI & Abdominal Exam: Soft - Extremities Exam Extremities exam: Negative for: pedal edema - Neurological Exam Neurological exam: Alert, CN II-XII Intact, Normal Gait, Oriented x3, Reflexes Normal - Psychiatric Exam Psychiatric exam: Agitated, Anxious, Manic Results - Vital Signs Recent Vital Signs: Last Vital Signs Temp 98.1 F 01/10/18 23:15 Pulse 84 01/10/18 23:15 Resp 20 01/10/18 23:15 BP 136/88 01/10/18 23:15 Pulse Ox 95 01/10/18 23:15 - Labs Result Diagrams: 01/06/18 12:05 01/06/18 12:29 Assessment & Plan - Assessment and Plan (Free Text) Assessment: Atypical chest pain - ?etiology Hx of HIV+ Possible Acute Bronchitis Hx of Schizophrenia Plan: Kendall Johnson - Date & Time Date: 01/07/18 Time: 08:00
[2018-01-11 08:48] VITALS: BP 121/86; TEMP 98.2; O2SAT 100
--- NOTE | 2018-01-11 08:51 | CP.PCM.PN ---
Subjective - Date & Time of Evaluation Date of Evaluation: 01/11/18 Time of Evaluation: 08:31 - Subjective Subjective: Pt refuse stress test and do not want to talk to me. (+) states I put my pants down on broad daylight in clinic. Objective - Vital Signs/Intake and Output Vital Signs (last 24 hours): Temp Pulse Resp BP Pulse Ox 98.1 F 80 20 136/88 95 01/10/18 23:15 01/11/18 04:00 01/10/18 23:15 01/10/18 23:15 01/10/18 23:15 - Medications Medications: Current Medications Amlodipine Besylate (Norvasc) 5 mg PO DAILY [facility] Last Admin: 01/10/18 09:59 Dose: Not Given Atazanavir (Reyataz) 400 mg PO DAILY [facility] PRN Reason: Protocol Last Admin: 01/10/18 09:59 Dose: 400 mg Clonazepam (Klonopin) 0.5 mg PO BID [facility] Last Admin: 01/10/18 21:37 Dose: Not Given Divalproex Sodium (Depakote Dr) 500 mg PO Q12 [facility] Last Admin: 01/10/18 21:32 Dose: 500 mg Home Med (Quetiapine [Seroquel]) 300 mg PO Q12 [facility] Azithromycin (Zithromax 500mg In Ns Addvantage) 500 mg in 250 mls @ 167 mls/hr IVPB Q24H [facility] PRN Reason: Protocol Last Admin: 01/10/18 19:00 Dose: Not Given Lamivudine/Zidovudine (Combivir 150 Mg-300 Mg) 1 tab PO BID [facility] PRN Reason: Protocol Last Admin: 01/10/18 18:00 Dose: Not Given Lorazepam (Ativan) 1 mg PO Q6 PRN PRN Reason: Anxiety - Labs Labs: 01/06/18 12:05 01/06/18 12:29 PT 11.9 SECONDS (9.7-12.2) 01/06/18 12:12 INR 1.1 01/06/18 12:12 APTT 41 SECONDS (21-34) H 01/06/18 12:12 - Constitutional Appears: No Acute Distress - ENT Exam ENT Exam: Mucous Membranes Moist (Refuse exam) Assessment and Plan - Assessment and Plan (Free Text) Assessment: Schizophrenia; Chest pain HIV infection For discharge if okay w/ Cardio Unlikely to get work up c/o weird thought process
[2018-01-11] MEDS: Divalproex 500 mg DR Tab PO SCH (09:12)
[2018-01-11] MEDS ORDERED: Pneumococcal 23-Valent Vaccine IM ONE ×2 (11:30→13:41)
[2018-01-11 12:22] VITALS: PULSE 88
--- NOTE | 2018-01-11 14:47 | CP.PCM.PN ---
Subjective - Date & Time of Evaluation Date of Evaluation: 01/11/18 Time of Evaluation: 13:00 - Subjective Subjective: BOAT PERSON NOTES Pt seen today, denies any complaints discussed with patient regarding stress test , pt refused despite detailed explanation d/w with Dr. Wu and made aware pt refusing stress test and all other test As per Dr. Wu pt can be be discharged home from cardiology standpoint , if she is refusing all test Objective - Vital Signs/Intake and Output Vital Signs (last 24 hours): Temp Pulse Resp BP Pulse Ox 98.2 F 88 20 121/86 100 01/11/18 08:44 01/11/18 12:21 01/11/18 08:44 01/11/18 08:44 01/11/18 08:44 Intake and Output: 01/11/18 01/11/18 06:59 18:59 Intake Total 720 Balance 720 - Medications Medications: Current Medications Amlodipine Besylate (Norvasc) 5 mg PO DAILY [facility] Last Admin: 01/11/18 09:12 Dose: Not Given Atazanavir (Reyataz) 400 mg PO DAILY [facility] PRN Reason: Protocol Last Admin: 01/11/18 09:12 Dose: 400 mg Clonazepam (Klonopin) 0.5 mg PO BID [facility] Last Admin: 01/11/18 09:12 Dose: Not Given Divalproex Sodium (Depakote Dr) 500 mg PO Q12 [facility] Last Admin: 01/11/18 09:12 Dose: 500 mg Home Med (Quetiapine [Seroquel]) 300 mg PO Q12 [facility] Azithromycin (Zithromax 500mg In Ns Addvantage) 500 mg in 250 mls @ 167 mls/hr IVPB Q24H [facility] PRN Reason: Protocol Last Admin: 01/10/18 19:00 Dose: Not Given Lamivudine/Zidovudine (Combivir 150 Mg-300 Mg) 1 tab PO BID [facility] PRN Reason: Protocol Last Admin: 01/11/18 09:12 Dose: 1 tab Lorazepam (Ativan) 1 mg PO Q6 PRN PRN Reason: Anxiety - Labs Labs: 01/06/18 12:05 01/06/18 12:29 PT 11.9 SECONDS (9.7-12.2) 01/06/18 12:12 INR 1.1 01/06/18 12:12 APTT 41 SECONDS (21-34) H 01/06/18 12:12
== END 2018-01-11 15:00 | disposition home or self-care (01) | DRG 313 ==
LOC: C.ER 10:22 → C.9E 13:05 → C.6T 14:43 → C.ER 01-10 10:22 → OBSVTOIN 01-10 12:31 → C.9E 01-10 13:05 → C.6T 01-10 14:43
PROVIDERS: ADMIT Internal Medicine; ATTEND Internal Medicine
PROC: GZ56ZZZ Individual Psychotherapy, Supportive (ICD-10-PCS; principal; 2018-01-10)
DX: R07.89 Other chest pain (principal); F25.0 Schizoaffective disorder, bipolar type; Z21 Asymptomatic human immunodeficiency virus [HIV] infection status; I10 Essential (primary) hypertension; R00.2 Palpitations; F41.9 Anxiety disorder, unspecified; F32.9 Major depressive disorder, single episode, unspecified; Z87.891 Personal history of nicotine dependence